=== PATIENT | female | born 1955 | race African-American/Black ===

== ENCOUNTER 2020-01-07 22:47 | Inpatient (IN) | payer MEDICARE, OTHER ==
[2020-01-07] MEDS ORDERED: hydrALAZINE 20 MG/ML VIAL ONE (23:17)
[2020-01-08 00:54] LABS: Troponin I 0.025 ng/mL (< 0.028)
[2020-01-08 03:00] VITALS: BMI 31.2
[2020-01-08] MEDS ORDERED: Senokot S 8.6-50 MG TAB PO PRN (04:57)
[2020-01-08] MEDS ORDERED: Acetaminophen 325 MG TAB PO PRN (04:57)
[2020-01-08 05:44] LABS: Troponin I 0.018 ng/mL (< 0.028)
[2020-01-08] MEDS ORDERED: Nitroglycerin 0.4 MG TAB (25 Tab Bottle) PO PRN (07:19)
[2020-01-08] MEDS ORDERED: cloNIDine 0.1 MG TAB PO PRN (07:21)
[2020-01-08] MEDS ORDERED: Ondansetron PF 4 MG/2 ML Vial IVP PRN (07:22)
[2020-01-08] MEDS ORDERED: Ondansetron ODT 4 MG TAB PO PRN (07:22)
[2020-01-08] MEDS ORDERED: Labetalol HCl 100 MG/20 ML VIAL SLOW IVP PRN (07:23)
[2020-01-08] MEDS ORDERED: Carvedilol 6.25 MG TAB PO SCH ×2 (08:00→09:00)
[2020-01-08] MEDS: Famotidine 20 MG TAB PO SCH ×3 (08:23→20:28)
[2020-01-08] MEDS ORDERED: Amlodipine 5 MG TAB PO SCH (09:00)
[2020-01-08] MEDS ORDERED: Amlodipine 10 MG TAB PO SCH (09:00)
[2020-01-08] MEDS ORDERED: Enoxaparin Sodium 40 MG/0.4 ML SYRINGE SC SCH (09:00)
[2020-01-08] MEDS ORDERED: NIFEdipine XL 30 MG TAB PO SCH (09:57)
[2020-01-08] MEDS ORDERED: Magnesium Sulfate 2 GM in Sodium Chloride 0.9% 100 ML IVPB SCH (10:00)
[2020-01-08] MEDS ORDERED: Magnesium 2 GM/50 ML 2 GM in Premix Bag 1 BAG IVPB SCH (10:15)
[2020-01-08 10:18] LABS: Hemoglobin 12.1 g/dL (12.0-16.0); Mean Corpuscular HGB CONC 34.3 g/dL (32.0-36.0); Mean Corpuscular Hemoglobin 32.8 pg (27.0-31.0); Mean Corpuscular Volume 95.6 fL (78.0-98.0); Mean Platelet Volume 8.1 fL (7.4-10.4); Platelet Count 228 thou/uL (130-400); RBC Distribution Width 11.7 % (11.5-14.5); Red Blood Cell (RBC) Count 3.69 mill/uL (4.20-5.40); White Blood Cell (WBC) Count 5.6 thou/uL (4.8-10.8)
[2020-01-08] MEDS ORDERED: Lorazepam 0.5 MG TAB PO PRN (10:27)
[2020-01-08] MEDS ORDERED: Lorazepam 2 MG/ML VIAL SLOW IVP SCH (10:30)
[2020-01-08 10:37] LABS: ALT (SGPT) 22 U/L (8-55); AST (SGOT) 32 U/L (5-34); Albumin 3.9 g/dL (3.4-4.8); Alkaline Phosphatase 100 U/L (40-110); Anion Gap 16 mmol/L (10-20); BUN (Urea Nitrogen) 18 mg/dL (9.8-20.1); Bilirubin, Total 1.2 mg/dL (0.2-1.2); Calc. Creatinine Clearance 72 mL/min (70-130); Calcium 9.1 mg/dL (7.8-10.44); Carbon Dioxide 20 mmol/L (23-31); Chloride 111 mmol/L (98-107); Estimated GFR-MDRD 72; Globulin 2.8 g/dL (2.4-3.5); Glucose 108 mg/dL (80-115); Magnesium 1.9 mg/dL (1.6-2.6); Potassium 3.5 mmol/L (3.5-5.1); Protein, Total 6.7 g/dL (6.0-8.3); Sodium 143 mmol/L (136-145)
[2020-01-08 10:40] LABS: Band 5 % (5-11); Eosinophils 4 % (0-10); Lymphocytes 35 % (21-51); MDiff Complete? YES; Monocytes 7 % (0-10); Neutrophil 49 % (42-75)
[2020-01-08] MEDS ORDERED: hydrALAZINE 20 MG/ML VIAL SLOW IVP PRN (11:30)
--- NOTE | 2020-01-08 12:04 | HP ---
PRIMARY CARE PHYSICIAN: The patient has seen Dr. Chopra in the past. She does not have a primary care physician. CHIEF COMPLAINT: Headache. HISTORY OF PRESENT ILLNESS: The patient is a 64-year-old female with hypertension, presented to [facility] with above complaints. Two days ago, the patient was evaluated in the emergency room for elevated blood pressure and headache. Her blood pressure in the emergency room was 248/146. She received several medications including labetalol total of 60 mg, hydralazine 10 mg, Zofran, and 100 mcg of fentanyl, and was discharged home for followup as outpatient. She was evaluated by Beverly De Los Santos yesterday as outpatient. Her blood pressure in the clinic was 161/92. She was started on carvedilol 6.25 and was discharged home. The patient returned to emergency room with elevated blood pressure. This time, blood pressure was 233/128. She also has generalized headache which was 8/10 without any aggravating or relieving factor. She also had some intermittent blurring of vision during the headache episode. She also complained of some photophobia. No chest pain, shortness of breath, palpitations, lightheadedness, dizziness, vertigo, chest pain, palpitations, syncope, or recent immobilization travel reported. The patient was started on Cardene drip and was transferred to this facility for hospital admission. At this facility, she received 10 mg of IV hydralazine and Cardene drip was later discontinued. PAST MEDICAL HISTORY: 1. Hypertension. 2. Questionable hepatitis B in 1980s. 3. Uterine fibroids. PAST SURGICAL HISTORY: 1. Tubal ligation. 2. Hernia repair. 3. Neck mass removal in 2017. ALLERGIES: THE PATIENT IS ALLERGIC TO SEVERAL MEDICATIONS INCLUDING KEFLEX, ASPIRIN, MOTRIN, DITROPAN, CLONIDINE, SULAR, AMLODIPINE, CLINDAMYCIN, DICLOFENAC, LISINOPRIL, AND BYSTOLIC. SOCIAL HISTORY: The patient currently lives at home with her family. She denies any smoking, alcohol, or drug use. She is full code and makes her own decision with the help of her family. FAMILY HISTORY: Positive for colon cancer. CURRENT HOME MEDICATIONS: The patient was started on carvedilol 6.25 mg b.i.d. yesterday. PHYSICAL EXAMINATION: VITAL SIGNS: In the emergency room, temperature 97.8, pulse rate of 78, respirations of 16, blood pressure of 233/128 with O2 saturation 96% on room air. GENERAL: A 64-year-old female, in no apparent distress. Anxious. HEENT: Head, atraumatic and normocephalic. Sclerae anicteric. Moist mucous membranes. No oral lesion. NECK: Supple. No JVD appreciated. No carotid bruit. LUNGS: Clear to auscultation bilaterally. HEART: S1 and S2 present. Regular rate and rhythm. No rubs or gallops. ABDOMEN: Soft, nontender. Bowel sounds present. No bruit. EXTREMITIES: No edema or calf tenderness. NEUROLOGIC: Cranial nerves 2 through 12 are normal on examination. Pupils are responsive to light bilaterally. There is no visual field defect. Sensation to touch is normal bilaterally. PSYCHIATRIC: Alert, awake, oriented x3. Anxious. SKIN: Warm and dry. LYMPH NODES: No palpable lymph nodes in the neck. PERIPHERAL VASCULAR: Radial pulses palpable bilaterally. MUSCULOSKELETAL: No joint swelling tenderness. DIAGNOSTIC TESTS: Telemetry monitoring by my review showed sinus rhythm. EKG by my review showed sinus rhythm with left axis deviation. CT scan of the brain by my review was negative for acute findings. Chest x-ray by my review was negative for infiltrate or edema. WBC of 5.6 with hemoglobin 12.1, platelets 228. Total bilirubin 2.1 with AST of 35, ALT of 125 with a creatinine of 1.2, and potassium 3.1. Her potassium today is 3.5 with BUN of 18, creatinine 0.94. TSH was 1.07. Hepatitis profile in 2015 was negative. Urinalysis showed 11 to 20 wbc's without any bacteria, moderate leukocyte esterase. IMPRESSION: 1. Hypertensive crisis, requiring Cardene. 2. Obesity with a BMI of 31.2. 3. Abnormal LFTs, improving. 4. Acute kidney injury on chronic kidney disease, stage 2, probably secondary to uncontrolled blood pressure. 5. Hypokalemia, improving. 6. Elevated troponin secondary to uncontrolled blood pressure/demand ischemia. Questionable type 2 myocardial infarction. 7. Medication noncompliance. PLAN: 1. The patient will be monitored in the telemetry unit. We will start her on Procardia XL along with carvedilol. We will add p.r.n. antihypertensives. We will add something for anxiety as well. Serial troponins were reviewed. We will recheck troponin in a.m. Treat headache with p.r.n. medications. 2. The patient was extensively counseled on hypertension. We will start her on low-dose potassium chloride. 3. DVT prophylaxis with SCDs. 4. The patient understands the above plan of care. Job ID: [id number]
[2020-01-08] MEDS ORDERED: Fentanyl 100 MCG/2 ML VIAL SLOW IVP SCH (12:15)
[2020-01-08] MEDS: Carvedilol 6.25 MG TAB PO SCH ×2 (16:15→20:27)
[2020-01-08] MEDS: Potassium Chloride 10 MEQ TAB PO SCH (16:16)
[2020-01-08] MEDS: NIFEdipine XL 30 MG TAB PO SCH (20:28)
[2020-01-09 05:35] LABS: Troponin I 0.033 ng/mL (< 0.028)
[2020-01-09 05:38] LABS: Anion Gap 14 mmol/L (10-20); BUN (Urea Nitrogen) 15 mg/dL (9.8-20.1); Calc. Creatinine Clearance 66 mL/min (70-130); Calcium 9.4 mg/dL (7.8-10.44); Carbon Dioxide 24 mmol/L (23-31); Chloride 107 mmol/L (98-107); Estimated GFR-MDRD 66; Glucose 104 mg/dL (80-115); Magnesium 2.2 mg/dL (1.6-2.6); Sodium 141 mmol/L (136-145)
[2020-01-09] MEDS: Carvedilol 6.25 MG TAB PO SCH (08:13)
[2020-01-09] MEDS: Potassium Chloride 10 MEQ TAB PO SCH ×2 (08:13→16:07)
[2020-01-09] MEDS: NIFEdipine XL 30 MG TAB PO SCH (08:13)
[2020-01-09] MEDS: Famotidine 20 MG TAB PO SCH (08:23)
[2020-01-09 15:46] VITALS: BP 130/64; TEMP 98.4
[2020-01-09] MEDS ORDERED: Carvedilol 6.25 MG TAB PO SCH (17:00)
--- NOTE | 2020-01-09 17:16 | DIS ---
DATE OF ADMISSION: 01/08/2020 DATE OF DISCHARGE: 01/09/2020 DISCHARGE DISPOSITION: Home. FOLLOWUP: 1. The patient was advised to follow up with Dr. Salinas in 1 week. 2. Follow up with Dr. Avila for hypertension management. 3. A sleep study as outpatient will be beneficial. DISCHARGE MEDICATIONS: 1. Carvedilol 6.25 mg twice a day. 2. Clonidine 0.1 mg twice daily as needed. 3. Procardia XL 30 mg daily. The patient was seen on the day of discharge. Denies any new complaints. No chest pain, shortness of breath, or palpitations. The patient will benefit from a stress test as outpatient. BRIEF HOSPITAL COURSE: The patient is a 64-year-old female with hypertension, presented to the emergency room with intractable headache. A workup was consistent with hypertensive crisis with blood pressure of 248/146. She was started on Cardene drip and was transferred to this facility. She was started on carvedilol along with Procardia XL with good improvement. Over the last 16 to 18 hours, her blood pressure remained stable in 130 systolic. She also had an echocardiogram due to elevated troponins in the indeterminate range that showed ejection fraction of 55% to 60% with mild mitral regurgitation, mild tricuspid regurgitation with a normal pulmonary artery pressure. She will benefit from a stress test as outpatient. Due to severely uncontrolled blood pressure, a renin-aldosterone level has been sent. Primary care physician advised to follow. Her cortisol level was in normal range at 10.1. Please note that the patient's overall condition improved earlier than anticipated. I think, the patient is stable for discharge. The patient understands the above plan of care. FINAL DIAGNOSES: 1. Hypertensive crisis. 2. Obesity with a BMI of 31.2. 3. Abnormal LFTs at the [facility] of unclear etiology, improving. 4. Acute kidney injury on chronic kidney disease stage 2, probably secondary to uncontrolled blood pressure, improved. 5. Hypokalemia, replaced. 6. Elevated troponin secondary to demand ischemia/uncontrolled high blood pressure, questionable type 2 myocardial infarction. 7. Medication noncompliance. The patient understands the above plan of care. She was extensively counseled on dietary modification for hypertension. Job ID: [id number]
[2020-01-12 00:36] LABS: Renin Activity Less than 0.167 ng/mL/hr (0.167-5.380)
== END 2020-01-09 17:30 | disposition home or self-care (01) | DRG 281 ==
LOC: ERS 22:47 → 2SE 01-08 00:15
PROVIDERS: ADMIT Internal Medicine; ATTEND Internal Medicine
DX: I16.9 Hypertensive crisis, unspecified (principal); I21.A1 Myocardial infarction type 2; N17.9 Acute kidney failure, unspecified; D25.9 Leiomyoma of uterus, unspecified; E66.9 Obesity, unspecified; Z68.31 Body mass index [BMI] 31.0-31.9, adult; E87.6 Hypokalemia; R79.89 Other specified abnormal findings of blood chemistry; Z91.14 Patient's other noncompliance with medication regimen; R94.5 Abnormal results of liver function studies
CPT/HCPCS: 36415; 80048; 80053; 82088; 82533; 83735; 84244; 84484; 85025; 93306; 94760; 96374; J0360; J1650; J2060; J3010; J3475

== ENCOUNTER 2021-06-14 18:33 | Inpatient (IN) | payer MEDICARE, OTHER ==
[2021-06-14] MEDS ORDERED: hydrALAZINE 20 MG/ML VIAL SLOW IVP PRN (20:55)
[2021-06-14] MEDS ORDERED: cloNIDine 0.1 MG TAB PO PRN ×2 (20:57→23:21)
[2021-06-14] MEDS: Morphine 2 MG/ML VIAL SLOW IVP PRN (21:35)
[2021-06-14] MEDS: Carvedilol 6.25 MG TAB PO SCH ×2 (21:36→22:32)
[2021-06-14] MEDS ORDERED: Acetaminophen 325 MG TAB PO PRN (23:17)
[2021-06-14] MEDS ORDERED: Ondansetron ODT 4 MG TAB PO PRN (23:17)
[2021-06-15] MEDS ORDERED: Dexamethasone 10 MG/ML VIAL SLOW IVP SCH (00:41)
[2021-06-15 04:02] LABS: #Basophils 0.1 thou/uL (0.0-0.2); #Eosinphils 0.2 thou/uL (0.0-0.7); #Lymphocytes 2.4 thou/uL (1.20-3.40); #Monocytes 0.6 thou/uL (0.11-0.59); #Neutrophils 4.3 thou/uL (1.40-6.50); %Basophils 0.7 % (0.0-1.0); %Lymphocytes 31.1 % (21.0-51.0); %Monocytes 8.2 % (0.0-10.0); %Neutrophils 56.9 % (42.0-75.0); Hemoglobin 13.1 g/dL (12.0-16.0); Mean Corpuscular Hemoglobin 33.5 pg (27.0-31.0); Mean Corpuscular Volume 95.9 fL (78.0-98.0); Mean Platelet Volume 6.4 fL (7.4-10.4); Platelet Count 297 thou/uL (130-400); RBC Distribution Width 11.8 % (11.5-14.5); Red Blood Cell (RBC) Count 3.92 mill/uL (4.20-5.40); White Blood Cell (WBC) Count 7.6 thou/uL (4.8-10.8)
[2021-06-15 04:14] LABS: Anion Gap 12 mmol/L (10-20); BUN (Urea Nitrogen) 16 mg/dL (9.8-20.1); Calc. Creatinine Clearance 69 mL/min (70-130); Calcium 9.5 mg/dL (7.8-10.44); Carbon Dioxide 25 mmol/L (23-31); Chloride 106 mmol/L (98-107); Glucose 120 mg/dL (80-115); Potassium 3.5 mmol/L (3.5-5.1); Sodium 139 mmol/L (136-145)
[2021-06-15] MEDS ORDERED: NIFEdipine XL 30 MG TAB PO SCH (09:00)
[2021-06-15] MEDS ORDERED: Enoxaparin Sodium 40 MG/0.4 ML SYRINGE SC SCH (09:00)
[2021-06-15 09:03] LABS: SARS-CoV-2 PCR by NAA Not Detected (NotDetected)
[2021-06-15] MEDS: Carvedilol 6.25 MG TAB PO SCH ×2 (09:35→21:36)
[2021-06-15] MEDS: Amlodipine 5 MG TAB PO SCH (09:37)
[2021-06-15] MEDS: Morphine 2 MG/ML VIAL SLOW IVP PRN (09:40)
[2021-06-15] MEDS ORDERED: Iopamidol-370 76% 500 ML 1 ML ONE (10:13)
[2021-06-15] MEDS ORDERED: Magnevist 469MG/ML 20 ML VIAL ONE (10:31)
[2021-06-15] MEDS: Dexamethasone 4 mg/ml Vial SLOW IVP SCH ×2 (15:42→21:38)
[2021-06-16] MEDS: Dexamethasone 4 mg/ml Vial SLOW IVP SCH ×4 (03:45→21:52)
[2021-06-16] MEDS: Ondansetron PF 4 MG/2 ML Vial IVP PRN (03:45)
[2021-06-16] MEDS ORDERED: Clindamycin/D5W 900 MG in Premix Bag 1 BAG IVPB SCH (08:00)
[2021-06-16] MEDS: Carvedilol 6.25 MG TAB PO SCH ×2 (09:06→20:31)
[2021-06-16] MEDS: Amlodipine 5 MG TAB PO SCH ×2 (09:07→09:08)
[2021-06-17] MEDS: Dexamethasone 4 mg/ml Vial SLOW IVP SCH ×4 (04:10→20:24)
[2021-06-17] MEDS ORDERED: Bacitracin Zinc Ointment 30 gm TUBE ONE (07:00)
[2021-06-17] MEDS ORDERED: Lidocaine 1% w/Epinephrine 1:100K 20 ML VIAL ONE (07:00)
[2021-06-17] MEDS ORDERED: Thrombin 5000 UNITS/5 ML VIAL ONE (07:00)
[2021-06-17] MEDS ORDERED: Lidocaine 0.5%/Epinephrine 1:200,000 50 ml Vial ONE (07:08)
[2021-06-17] MEDS: Amlodipine 5 MG TAB PO SCH (07:48)
[2021-06-17] MEDS ORDERED: Clindamycin/D5W 900 mg/50 ml Premix Bag ONE ×2 (08:15→15:09)
[2021-06-17] MEDS ORDERED: Levofloxacin 500 mg/D5W 100 ml Premix Bag ONE (08:15)
[2021-06-17] MEDS ORDERED: Fentanyl 100 MCG/2 ML VIAL ONE ×4 (08:38→17:41)
[2021-06-17] MEDS ORDERED: Ondansetron PF 4 MG/2 ML Vial ONE (08:51)
[2021-06-17] MEDS ORDERED: PROPOFOL 200 MG/20 ML VIAL ONE (08:51)
[2021-06-17] MEDS ORDERED: PHENYLEPHRINE-NS 100 MCG/ML 10 ML SYRINGE ONE ×2 (08:51→11:40)
[2021-06-17] MEDS ORDERED: Lidocaine 1% PF 5 ML VIAL ONE (08:51)
[2021-06-17] MEDS ORDERED: Rocuronium Bromide 10 MG/ML (10ML VIAL) ONE (08:51)
[2021-06-17] MEDS ORDERED: Mannitol 12.5 GM/50 ML ONE (09:33)
[2021-06-17] MEDS ORDERED: PROPOFOL 20 ML ONE ×4 (09:33→14:08)
[2021-06-17] MEDS ORDERED: Sodium Chloride 0.9% 250 Advantage ONE (09:33)
[2021-06-17] MEDS ORDERED: Rocuronium Bromide 50 MG/5 ML VIAL ONE (11:56)
[2021-06-17] MEDS ORDERED: SUGAMMADEX SODIUM 200 MG/2 ML VIAL ONE (13:15)
[2021-06-17] MEDS ORDERED: Dexmedetomidine 200 MCG/2 ML VIAL ONE (13:40)
[2021-06-17] MEDS ORDERED: diphenhydrAMINE 50 MG/ML VIAL IVP PRN (14:19)
[2021-06-17] MEDS ORDERED: Diltiazem 125 MG in Sodium Chloride 0.9% 100 ML IVPB SCH (14:30)
[2021-06-17] MEDS ORDERED: Promethazine HCl 25 MG/ML VIAL IM PRN (14:33)
[2021-06-17] MEDS ORDERED: Promethazine HCl 25 MG/ML VIAL IVPB PRN (14:33)
[2021-06-17] MEDS ORDERED: Ondansetron HCl/PF 4 MG/2 ML Vial IVP PRN (14:33)
[2021-06-17] MEDS ORDERED: niCARdipine 40MG In NaCl 40 MG/200 ML BAG IVPB SCH (14:45)
[2021-06-17] MEDS ORDERED: Dexamethasone 4 mg/ml Vial ONE (15:10)
[2021-06-17] MEDS: Clindamycin/D5W 900 MG in Premix Bag 1 BAG IVPB SCH ×2 (15:12→20:24)
[2021-06-17] MEDS ORDERED: hydrALAZINE 20 MG/ML VIAL ONE (15:17)
[2021-06-17] MEDS ORDERED: niCARdipine 25 MG in Sodium Chloride 0.9% 250 ML 250 ML IVPB SCH (15:30)
[2021-06-17] MEDS: Sodium Chloride 0.9% 1,000 ML IV SCH (16:00)
[2021-06-17] MEDS: Ondansetron PF 4 MG/2 ML Vial IVP PRN ×2 (18:15→23:48)
[2021-06-17] MEDS: Morphine 2 MG/ML VIAL SLOW IVP PRN ×2 (20:07→23:46)
[2021-06-17] MEDS: HYDROcodone/Acetaminophen 7.5/325 mg Tablet PO PRN (20:24)
[2021-06-17] MEDS: niCARdipine 25 MG in Sodium Chloride 0.9% 250 ML 240 ML IVPB SCH (20:51)
[2021-06-18] MEDS: niCARdipine 25 MG in Sodium Chloride 0.9% 250 ML 240 ML IVPB SCH ×3 (00:09→09:21)
[2021-06-18] MEDS: HYDROcodone/Acetaminophen 7.5/325 mg Tablet PO PRN ×2 (02:39→06:20)
[2021-06-18] MEDS: Clindamycin/D5W 900 MG in Premix Bag 1 BAG IVPB SCH (02:39)
[2021-06-18] MEDS: Dexamethasone 4 mg/ml Vial SLOW IVP SCH ×2 (02:41→08:21)
[2021-06-18 04:07] LABS: #Monocytes 0.6 thou/uL (0.11-0.59); #Neutrophils 12.6 thou/uL (1.40-6.50); %Eosinophils 0.1 % (0.0-10.0); %Lymphocytes 6.9 % (21.0-51.0); %Monocytes 4.2 % (0.0-10.0); %Neutrophils 88.8 % (42.0-75.0); Hemoglobin 12.1 g/dL (12.0-16.0); Mean Corpuscular HGB CONC 35.4 g/dL (32.0-36.0); Mean Corpuscular Hemoglobin 34.3 pg (27.0-31.0); Mean Corpuscular Volume 96.8 fL (78.0-98.0); Mean Platelet Volume 6.5 fL (7.4-10.4); Platelet Count 290 thou/uL (130-400); RBC Distribution Width 12.1 % (11.5-14.5); Red Blood Cell (RBC) Count 3.52 mill/uL (4.20-5.40); White Blood Cell (WBC) Count 14.2 thou/uL (4.8-10.8)
[2021-06-18 04:29] LABS: Anion Gap 13 mmol/L (10-20); BUN (Urea Nitrogen) 23 mg/dL (9.8-20.1); Calc. Creatinine Clearance 73 mL/min (70-130); Calcium 8.8 mg/dL (7.8-10.44); Carbon Dioxide 20 mmol/L (23-31); Chloride 111 mmol/L (98-107); Glucose 135 mg/dL (80-115); Potassium 3.7 mmol/L (3.5-5.1); Sodium 140 mmol/L (136-145)
[2021-06-18] MEDS: Sodium Chloride 0.9% 1,000 ML IV SCH ×2 (05:25→17:52)
[2021-06-18] MEDS ORDERED: Amlodipine 5 MG TAB PO SCH (09:00)
[2021-06-18] MEDS: Morphine 2 MG/ML VIAL SLOW IVP PRN ×2 (10:26→22:48)
[2021-06-18] MEDS ORDERED: cloNIDine 0.1 MG TAB PO SCH (10:50)
[2021-06-18] MEDS: niCARdipine 50 MG in Sodium Chloride 0.9% 250 ML 230 ML IVPB SCH ×4 (10:54→20:24)
[2021-06-18] MEDS ORDERED: cloNIDine 0.1 MG TAB PO PRN (10:57)
[2021-06-18] MEDS ORDERED: hydrALAZINE 20 MG/ML VIAL SLOW IVP PRN (12:32)
[2021-06-18] MEDS: Ondansetron PF 4 MG/2 ML Vial IVP PRN (13:30)
[2021-06-18] MEDS: Dexamethasone 1 MG TAB PO SCH ×2 (16:58→20:23)
[2021-06-18] MEDS: cloNIDine 0.1 MG TAB PO SCH (20:22)
[2021-06-19] MEDS: niCARdipine 50 MG in Sodium Chloride 0.9% 250 ML 230 ML IVPB SCH (05:57)
[2021-06-19] MEDS: Sodium Chloride 0.9% 1,000 ML IV SCH ×2 (05:59→18:25)
[2021-06-19] MEDS: Dexamethasone 1 MG TAB PO SCH ×4 (08:36→20:48)
[2021-06-19] MEDS: NIFEdipine XL 90 MG TAB PO SCH (08:36)
[2021-06-19] MEDS: cloNIDine 0.1 MG TAB PO SCH ×2 (08:37→20:46)
[2021-06-20 04:17] VITALS: BMI 38.4
[2021-06-20] MEDS: Sodium Chloride 0.9% 1,000 ML IV SCH ×2 (06:30→23:16)
[2021-06-20] MEDS ORDERED: Bisacodyl 5 MG TAB PO PRN (08:59)
[2021-06-20] MEDS ORDERED: Polyethylene Glycol 3350 17 GM Packet PO SCH (09:00)
[2021-06-20] MEDS: NIFEdipine XL 90 MG TAB PO SCH (10:56)
[2021-06-20] MEDS: Dexamethasone 1 MG TAB PO SCH ×4 (10:57→20:20)
[2021-06-20] MEDS: cloNIDine 0.1 MG TAB PO SCH ×2 (10:57→20:20)
[2021-06-20 19:18] VITALS: BP 123/76; TEMP 98
[2021-06-23] MEDS ORDERED: Dexamethasone 1 MG TAB PO SCH (17:00)
== END 2021-06-20 22:01 | DRG 25 ==
LOC: ERS 18:33 → ONC 19:42 → CCU 06-17 16:28 → SURG A 06-19 17:35
PROVIDERS: ADMIT Student in an Organized Health Care Education/Training Program; ATTEND Family Medicine
PROC: 00BC0ZZ Excision of Cerebellum, Open Approach (ICD-10-PCS; principal; 2021-06-17)
PROC: 00U20KZ Supplement Dura Mater with Nonautologous Tissue Substitute, Open Approach (ICD-10-PCS; 2021-06-17)
DX: C79.31 Secondary malignant neoplasm of brain (principal); G93.6 Cerebral edema; G93.5 Compression of brain; Z66 Do not resuscitate; Z20.822 Contact with and (suspected) exposure to COVID-19; C50.919 Malignant neoplasm of unspecified site of unspecified female breast; I10 Essential (primary) hypertension; I16.0 Hypertensive urgency; I51.7 Cardiomegaly; I66.21 Occlusion and stenosis of right posterior cerebral artery; R59.0 Localized enlarged lymph nodes; Z88.1 Allergy status to other antibiotic agents; Z88.8 Allergy status to other drugs, medicaments and biological substances; Z79.899 Other long term (current) drug therapy; Z98.51 Tubal ligation status
CPT/HCPCS: 36415; 38505; 70553; 71260; 74177; 78306; 80048; 85025; 88307; 88331; 88341; 88342; 99285; A9503; A9579; C1713; J0360; J1100; J1642; J1956; J2001; J2150; J2270; J2405; J2704; J3010; J3370; J3490; J7050; J8540; Q9967; U0003; U0005

== ENCOUNTER 2021-07-19 12:44 | Outpatient (CLI) | payer MEDICARE, OTHER | END 2021-07-19 12:45 | disposition home or self-care (01) | LOC: ULT 12:44 | PROVIDERS: ATTEND Internal Medicine Hematology & Oncology | DX: Z51.11 Encounter for antineoplastic chemotherapy (principal); C50.912 Malignant neoplasm of unspecified site of left female breast; I08.1 Rheumatic disorders of both mitral and tricuspid valves; I31.3 Pericardial effusion (noninflammatory); Z79.899 Other long term (current) drug therapy | CPT/HCPCS: 93306 ==

== ENCOUNTER 2021-07-22 12:23 | Emergency (ER) | payer MEDICARE, OTHER ==
[2021-07-22] MEDS ORDERED: Morphine 4 MG/ML VIAL ONE (13:15)
[2021-07-22 13:39] LABS: #Basophils 0.1 thou/uL (0.0-0.2); #Lymphocytes 2.1 thou/uL (1.20-3.40); #Monocytes 0.6 thou/uL (0.11-0.59); #Neutrophils 5.3 thou/uL (1.40-6.50); %Basophils 0.7 % (0.0-1.0); %Eosinophils 0.2 % (0.0-10.0); %Lymphocytes 26.1 % (21.0-51.0); %Monocytes 7.1 % (0.0-10.0); %Neutrophils 65.9 % (42.0-75.0); Hemoglobin 15.5 g/dL (12.0-16.0); Mean Corpuscular Hemoglobin 33.4 pg (27.0-31.0); Mean Corpuscular Volume 98.2 fL (78.0-98.0); Mean Platelet Volume 6.6 fL (7.4-10.4); Platelet Count 368 thou/uL (130-400); RBC Distribution Width 12.1 % (11.5-14.5); Red Blood Cell (RBC) Count 4.66 mill/uL (4.20-5.40)
[2021-07-22 13:49] LABS: Albumin 4.1 g/dL (3.4-4.8)
[2021-07-22 13:50] LABS: Calcium 9.9 mg/dL (7.8-10.44); Chloride 108 mmol/L (98-107); Potassium 4.1 mmol/L (3.5-5.1); Sodium 139 mmol/L (136-145)
[2021-07-22 13:51] LABS: Globulin 3.4 g/dL (2.4-3.5); Glucose 108 mg/dL (80-115); Protein, Total 7.5 g/dL (5.8-8.1)
[2021-07-22 13:52] LABS: Anion Gap 15 mmol/L (10-20); Carbon Dioxide 20 mmol/L (23-31)
[2021-07-22 13:53] LABS: Bilirubin, Total 1.8 mg/dL (0.2-1.2)
[2021-07-22 13:54] LABS: Alkaline Phosphatase 87 U/L (40-110); Calc. Creatinine Clearance 0 mL/min (70-130)
[2021-07-22 13:55] LABS: BUN (Urea Nitrogen) 19 mg/dL (9.8-20.1)
[2021-07-22 13:56] LABS: AST (SGOT) 28 U/L (5-34)
[2021-07-22 13:57] LABS: ALT (SGPT) 16 U/L (8-55)
[2021-07-22 15:28] LABS: Bacteria/HPF None Seen HPF (None Seen); Bilirubin Negative (Negative); Blood, Urine Negative (Negative); Clarity Clear (Clear); Glucose, Urine (Dipstick) Normal (Negative); Ketone, Urine Negative (Negative); Leukocyte 25 Leu/uL (Negative); Nitrite Negative (Negative); Protein, Urine (Dipstick) Negative (Neg-Trace); RBC/HPF 0-3 HPF (0-3); Specific Gravity, Urine 1.007 (1.002-1.036); Squamous Epithelial 0-3 HPF (0-3); Urobilinogen Normal mg/dL (Less than 2); WBC/HPF 0-3 HPF (0-3)
[2021-07-22] MEDS ORDERED: Ondansetron PF 4 MG/2 ML Vial ONE (16:05)
== END 2021-07-22 18:40 | disposition home or self-care (01) ==
LOC: ERS 12:23
DX: G62.9 Polyneuropathy, unspecified (principal); C79.31 Secondary malignant neoplasm of brain; I10 Essential (primary) hypertension; Z79.899 Other long term (current) drug therapy
CPT/HCPCS: 36415; 70450; 72131; 72192; 80053; 81003; 81015; 85025; 85379; 96374; J2270; J2405

== ENCOUNTER 2021-07-27 11:17 | Emergency (ER) | payer MEDICARE, OTHER ==
[2021-07-27 13:02] LABS: #Lymphocytes 2.4 thou/uL (1.20-3.40); #Monocytes 0.6 thou/uL (0.11-0.59); #Neutrophils 6.9 thou/uL (1.40-6.50); %Basophils 0.1 % (0.0-1.0); %Eosinophils 0.1 % (0.0-10.0); %Lymphocytes 23.7 % (21.0-51.0); %Monocytes 6.4 % (0.0-10.0); %Neutrophils 69.8 % (42.0-75.0); Mean Corpuscular HGB CONC 34.6 g/dL (32.0-36.0); Mean Corpuscular Hemoglobin 33.5 pg (27.0-31.0); Platelet Count 340 thou/uL (130-400); RBC Distribution Width 12.1 % (11.5-14.5); Red Blood Cell (RBC) Count 4.48 mill/uL (4.20-5.40); White Blood Cell (WBC) Count 9.9 thou/uL (4.8-10.8)
[2021-07-27] MEDS ORDERED: Lidocaine Viscous Sol 2% 15 ml UD Cup ONE (13:21)
[2021-07-27] MEDS ORDERED: Ondansetron PF 4 MG/2 ML Vial ONE (13:21)
[2021-07-27 13:23] LABS: ALT (SGPT) 15 U/L (8-55); AST (SGOT) 18 U/L (5-34); Albumin 4.4 g/dL (3.4-4.8); Alkaline Phosphatase 83 U/L (40-110); Anion Gap 14 mmol/L (10-20); BUN (Urea Nitrogen) 23 mg/dL (9.8-20.1); Bilirubin, Total 1.6 mg/dL (0.2-1.2); Calc. Creatinine Clearance 0 mL/min (70-130); Calcium 10.7 mg/dL (7.8-10.44); Carbon Dioxide 31 mmol/L (23-31); Chloride 98 mmol/L (98-107); Globulin 2.9 g/dL (2.4-3.5); Glucose 118 mg/dL (80-115); Lipase 54 U/L (8-78); Potassium 3.8 mmol/L (3.5-5.1); Protein, Total 7.3 g/dL (5.8-8.1); Sodium 139 mmol/L (136-145)
[2021-07-27 14:39] LABS: Bacteria/HPF 4+ HPF (None Seen); Bilirubin Negative (Negative); Blood, Urine Negative (Negative); Clarity Turbid (Clear); Glucose, Urine (Dipstick) Normal (Negative); Ketone, Urine Negative (Negative); Leukocyte 500 Leu/uL (Negative); Nitrite Negative (Negative); Protein, Urine (Dipstick) 10 mg/dL (Neg-Trace); RBC/HPF 0-3 HPF (0-3); Specific Gravity, Urine 1.022 (1.002-1.036); Squamous Epithelial 0-3 HPF (0-3); Urobilinogen Normal mg/dL (Less than 2); WBC/HPF 21-50 HPF (0-3)
== END 2021-07-27 15:42 | disposition home or self-care (01) ==
LOC: ERS 11:17
DX: N17.9 Acute kidney failure, unspecified (principal); N39.0 Urinary tract infection, site not specified; I10 Essential (primary) hypertension; Z85.3 Personal history of malignant neoplasm of breast; Z79.82 Long term (current) use of aspirin; Z79.899 Other long term (current) drug therapy
CPT/HCPCS: 74177; 80053; 81003; 81015; 83690; 85025; 87077; 87086; 87186; 93005; 96374; J2405

== ENCOUNTER 2021-08-01 14:02 | Emergency (ER) | payer MEDICARE, OTHER ==
[2021-08-01] MEDS ORDERED: Metoclopramide 10 MG/10 ML UDCUP ONE (14:46)
[2021-08-01] MEDS ORDERED: diphenhydrAMINE 50 MG/ML VIAL ONE (14:46)
[2021-08-01] MEDS ORDERED: Metoclopramide HCl 10 MG/2 ML VIAL ONE (14:47)
[2021-08-01] MEDS ORDERED: cloNIDine 0.1 MG TAB ONE (16:06)
== END 2021-08-01 17:58 | disposition home or self-care (01) ==
LOC: ERS 14:02
DX: R51.9 Headache, unspecified (principal); I10 Essential (primary) hypertension; Z85.3 Personal history of malignant neoplasm of breast
CPT/HCPCS: 70450; J1200; J2765

== ENCOUNTER 2021-08-03 08:32 | Inpatient (IN) | payer MEDICARE, OTHER ==
[2021-08-03 09:26] LABS: #Lymphocytes 1.2 thou/uL (1.20-3.40); #Monocytes 0.9 thou/uL (0.11-0.59); #Neutrophils 7.6 thou/uL (1.40-6.50); %Basophils 0.2 % (0.0-1.0); %Eosinophils 0.2 % (0.0-10.0); %Lymphocytes 12.4 % (21.0-51.0); %Monocytes 9.4 % (0.0-10.0); %Neutrophils 77.7 % (42.0-75.0); Hemoglobin 15.5 g/dL (12.0-16.0); Mean Corpuscular HGB CONC 33.5 g/dL (32.0-36.0); Mean Corpuscular Hemoglobin 32.9 pg (27.0-31.0); Mean Corpuscular Volume 98.2 fL (78.0-98.0); Mean Platelet Volume 7.2 fL (7.4-10.4); Platelet Count 272 thou/uL (130-400); RBC Distribution Width 12.5 % (11.5-14.5); Red Blood Cell (RBC) Count 4.72 mill/uL (4.20-5.40); White Blood Cell (WBC) Count 9.8 thou/uL (4.8-10.8)
[2021-08-03 09:39] LABS: ALT (SGPT) 19 U/L (8-55); AST (SGOT) 19 U/L (5-34); Alkaline Phosphatase 81 U/L (40-110); Anion Gap 14 mmol/L (10-20); BUN (Urea Nitrogen) 20 mg/dL (9.8-20.1); Calc. Creatinine Clearance 0 mL/min (70-130); Calcium 9.9 mg/dL (7.8-10.44); Carbon Dioxide 30 mmol/L (23-31); Chloride 104 mmol/L (98-107); Globulin 2.9 g/dL (2.4-3.5); Glucose 110 mg/dL (80-115); Potassium 3.7 mmol/L (3.5-5.1); Protein, Total 6.9 g/dL (5.8-8.1); Sodium 144 mmol/L (136-145)
[2021-08-03 09:53] LABS: Prothrombin Time 13.2 sec (12.0-14.7)
[2021-08-03 09:54] LABS: PTT 29.8 sec (22.9-36.1)
[2021-08-03] MEDS ORDERED: HYDROcodone/Acetaminophen 5/325 mg Tablet PO PRN (11:18)
[2021-08-03] MEDS ORDERED: Acetaminophen 325 MG TAB PO PRN (11:18)
[2021-08-03] MEDS ORDERED: Dexamethasone 10 MG in Sodium Chloride 0.9% 50 ML IVPB SCH (11:26)
[2021-08-03] MEDS ORDERED: Enoxaparin Sodium 40 MG/0.4 ML SYRINGE SC SCH (11:30)
[2021-08-03] MEDS ORDERED: hydrALAZINE 20 MG/ML VIAL SLOW IVP PRN (11:46)
[2021-08-03] MEDS ORDERED: Iopamidol-370 76% 500 ML 1 ML ONE (11:59)
[2021-08-03] MEDS ORDERED: Magnevist 469MG/ML 20 ML VIAL ONE (12:12)
[2021-08-03 12:17] LABS: Bacteria/HPF None Seen HPF (None Seen); Bilirubin Negative (Negative); Blood, Urine 2+ (Negative); Clarity Clear (Clear); Glucose, Urine (Dipstick) Normal (Negative); Ketone, Urine Negative (Negative); Leukocyte 500 Leu/uL (Negative); Nitrite Negative (Negative); Protein, Urine (Dipstick) Negative (Neg-Trace); RBC/HPF 0-3 HPF (0-3); Specific Gravity, Urine 1.027 (1.002-1.036); Squamous Epithelial 0-3 HPF (0-3); Urobilinogen Normal mg/dL (Less than 2); WBC/HPF 21-50 HPF (0-3)
[2021-08-03] MEDS ORDERED: NIFEdipine XL 30 MG TAB PO SCH (12:30)
[2021-08-03 12:54] VITALS: BMI 31.0
[2021-08-03] MEDS: Dexamethasone 10 MG/ML VIAL SLOW IVP SCH (14:34)
[2021-08-03] MEDS: diphenhydrAMINE 50 MG/ML VIAL IVP PRN (14:37)
[2021-08-03] MEDS: Metoclopramide HCl 10 MG/2 ML VIAL IVP SCH ×2 (14:37→22:28)
[2021-08-03] MEDS: Dextrose 5 %-0.45 % NaCl 1,000 ML IV SCH (14:54)
[2021-08-03] MEDS ORDERED: Amlodipine 5 MG TAB PO SCH (15:00)
[2021-08-03] MEDS ORDERED: Gabapentin 100 MG CAP PO SCH (15:00)
[2021-08-03 15:12] LABS: Hemoglobin A1c 5.4 % (4.0-6.0)
[2021-08-03] MEDS: cloNIDine 0.1 MG TAB PO PRN (17:09)
[2021-08-03] MEDS ORDERED: Nystatin Powder 15 GM BOT TOP PRN (18:12)
[2021-08-03] MEDS: Gabapentin 300 MG CAP PO SCH (20:32)
[2021-08-04] MEDS: Dextrose 5 %-0.45 % NaCl 1,000 ML IV SCH ×3 (01:40→23:08)
[2021-08-04 06:02] LABS: Cardiac Risk 4.1 (Less than 4.5)
[2021-08-04] MEDS: Metoclopramide HCl 10 MG/2 ML VIAL IVP SCH ×4 (06:18→23:07)
[2021-08-04 08:25] LABS: Anion Gap 13 mmol/L (10-20); BUN (Urea Nitrogen) 15 mg/dL (9.8-20.1); Calc. Creatinine Clearance 57 mL/min (70-130); Calcium 8.9 mg/dL (7.8-10.44); Carbon Dioxide 26 mmol/L (23-31); Chloride 106 mmol/L (98-107); Glucose 119 mg/dL (80-115); Potassium 3.5 mmol/L (3.5-5.1); Sodium 141 mmol/L (136-145)
[2021-08-04] MEDS: Aspirin Chewable 81 MG TAB PO SCH (08:47)
[2021-08-04] MEDS: Enoxaparin Sodium 40 MG/0.4 ML SYRINGE SC SCH (08:47)
[2021-08-04] MEDS: Gabapentin 100 MG CAP PO SCH (08:47)
[2021-08-04] MEDS: Amlodipine 5 MG TAB PO SCH (08:48)
[2021-08-04] MEDS: Ondansetron PF 4 MG/2 ML Vial IVP PRN (08:52)
[2021-08-04] MEDS ORDERED: NIFEdipine XL 30 MG TAB PO SCH (09:00)
[2021-08-04] MEDS ORDERED: Bisacodyl 10 MG SUPP PR PRN (11:24)
[2021-08-04] MEDS ORDERED: Polyethylene Glycol 3350 17 GM Packet PO SCH (11:30)
[2021-08-04] MEDS ORDERED: Docusate 100 MG CAP PO SCH (11:30)
[2021-08-04] MEDS: Dexamethasone 10 MG/ML VIAL SLOW IVP SCH (11:44)
[2021-08-04] MEDS ORDERED: Metoclopramide HCl 10 MG/2 ML VIAL IVP SCH (17:30)
[2021-08-04] MEDS: diphenhydrAMINE 50 MG/ML VIAL IVP PRN ×2 (17:34→23:07)
[2021-08-04] MEDS ORDERED: Dicyclomine 10 MG CAP PO SCH (21:15)
[2021-08-04] MEDS: fentaNYL 75 mcg/hour Patch TD SCH (21:32)
[2021-08-04] MEDS: Docusate 100 MG CAP PO SCH (21:34)
[2021-08-04] MEDS: Gabapentin 300 MG CAP PO SCH (21:34)
[2021-08-05] MEDS: diphenhydrAMINE 50 MG/ML VIAL IVP PRN (06:26)
[2021-08-05] MEDS: Metoclopramide HCl 10 MG/2 ML VIAL IVP SCH ×3 (06:26→21:04)
[2021-08-05] MEDS: Gabapentin 100 MG CAP PO SCH (08:47)
[2021-08-05] MEDS: Aspirin Chewable 81 MG TAB PO SCH (08:47)
[2021-08-05] MEDS: Dextrose 5 %-0.45 % NaCl 1,000 ML IV SCH ×2 (08:48→19:29)
[2021-08-05] MEDS: Enoxaparin Sodium 40 MG/0.4 ML SYRINGE SC SCH (08:48)
[2021-08-05] MEDS: Docusate 100 MG CAP PO SCH ×2 (08:48→21:03)
[2021-08-05] MEDS: Amlodipine 5 MG TAB PO SCH (08:48)
[2021-08-05] MEDS: Polyethylene Glycol 3350 17 GM Packet PO SCH (08:49)
[2021-08-05] MEDS: Gabapentin 300 MG CAP PO SCH (21:04)
[2021-08-06] MEDS: cloNIDine 0.1 MG TAB PO PRN (00:02)
[2021-08-06] MEDS: Dextrose 5 %-0.45 % NaCl 1,000 ML IV SCH ×3 (05:54→20:39)
[2021-08-06] MEDS: Metoclopramide HCl 10 MG/2 ML VIAL IVP SCH ×2 (05:54→14:32)
[2021-08-06] MEDS: Amlodipine 5 MG TAB PO SCH (08:38)
[2021-08-06] MEDS: Polyethylene Glycol 3350 17 GM Packet PO SCH (08:39)
[2021-08-06] MEDS: Aspirin Chewable 81 MG TAB PO SCH (08:39)
[2021-08-06] MEDS: Docusate 100 MG CAP PO SCH ×2 (08:39→20:38)
[2021-08-06] MEDS: Gabapentin 100 MG CAP PO SCH (08:39)
[2021-08-06] MEDS: Enoxaparin Sodium 40 MG/0.4 ML SYRINGE SC SCH (08:40)
[2021-08-06] MEDS ORDERED: HYDROmorphone 0.5 MG/0.5 ML SYRINGE SLOW IVP PRN (11:50)
[2021-08-06] MEDS ORDERED: HYDROmorphone 0.5 MG/0.5 ML SYRINGE SLOW IVP SCH ×2 (12:15→14:15)
[2021-08-06] MEDS: Ondansetron PF 4 MG/2 ML Vial IVP PRN ×2 (12:42→18:24)
[2021-08-06] MEDS: Gabapentin 300 MG CAP PO SCH (20:38)
[2021-08-07 05:56] LABS: #Eosinphils 0.2 thou/uL (0.0-0.7); #Lymphocytes 1.5 thou/uL (1.20-3.40); #Neutrophils 7.5 thou/uL (1.40-6.50); %Basophils 0.3 % (0.0-1.0); %Eosinophils 1.6 % (0.0-10.0); %Lymphocytes 14.5 % (21.0-51.0); %Monocytes 9.9 % (0.0-10.0); %Neutrophils 73.7 % (42.0-75.0); Hemoglobin 12.8 g/dL (12.0-16.0); Mean Corpuscular HGB CONC 32.8 g/dL (32.0-36.0); Mean Corpuscular Hemoglobin 32.1 pg (27.0-31.0); Mean Corpuscular Volume 97.9 fL (78.0-98.0); Mean Platelet Volume 7.2 fL (7.4-10.4); Platelet Count 193 thou/uL (130-400); RBC Distribution Width 12.4 % (11.5-14.5); Red Blood Cell (RBC) Count 3.98 mill/uL (4.20-5.40); White Blood Cell (WBC) Count 10.1 thou/uL (4.8-10.8)
[2021-08-07 06:18] LABS: Anion Gap 11 mmol/L (10-20); BUN (Urea Nitrogen) 11 mg/dL (9.8-20.1); Calc. Creatinine Clearance 69 mL/min (70-130); Calcium 8.9 mg/dL (7.8-10.44); Carbon Dioxide 26 mmol/L (23-31); Chloride 110 mmol/L (98-107); Glucose 117 mg/dL (80-115); Potassium 4.1 mmol/L (3.5-5.1); Sodium 143 mmol/L (136-145)
[2021-08-07] MEDS ORDERED: Dexamethasone 4 mg/ml Vial ONE (06:37)
[2021-08-07 08:46] LABS: SARS-CoV-2 NAA Rapid Test Not Detected (NotDetected)
[2021-08-07] MEDS: cloNIDine 0.1 MG TAB PO PRN (10:30)
[2021-08-07] MEDS: Amlodipine 5 MG TAB PO SCH (10:30)
[2021-08-07] MEDS: Ondansetron PF 4 MG/2 ML Vial IVP PRN ×2 (11:31→18:02)
[2021-08-07] MEDS: Enoxaparin Sodium 40 MG/0.4 ML SYRINGE SC SCH (11:32)
[2021-08-07] MEDS: Aspirin Chewable 81 MG TAB PO SCH (11:40)
[2021-08-07] MEDS: Gabapentin 100 MG CAP PO SCH (11:40)
[2021-08-07] MEDS: Polyethylene Glycol 3350 17 GM Packet PO SCH (11:40)
[2021-08-07] MEDS: Docusate 100 MG CAP PO SCH ×2 (11:40→21:49)
[2021-08-07] MEDS: Dextrose 5 %-0.45 % NaCl 1,000 ML IV SCH ×2 (12:14→22:04)
[2021-08-07] MEDS ORDERED: Amlodipine 5 MG TAB PO SCH (12:30)
[2021-08-07 19:14] LABS: SARS-CoV-2 IgG Ab Non-Reactive (NonReactive)
[2021-08-07 19:28] LABS: SARS-CoV-2 IgG Index 0.04 S/CO (< 1.40)
[2021-08-07] MEDS ORDERED: Metoclopramide HCl 10 MG/2 ML VIAL IVP PRN (20:31)
[2021-08-07] MEDS: fentaNYL 75 mcg/hour Patch TD SCH (22:08)
[2021-08-07] MEDS: Gabapentin 300 MG CAP PO SCH (22:14)
[2021-08-08] MEDS: Ondansetron PF 4 MG/2 ML Vial IVP PRN (01:12)
[2021-08-08] MEDS: Docusate 100 MG CAP PO SCH ×2 (09:25→20:42)
[2021-08-08] MEDS: Amlodipine 10 MG TAB PO SCH (09:25)
[2021-08-08] MEDS: Gabapentin 100 MG CAP PO SCH (09:28)
[2021-08-08] MEDS: Dextrose 5 %-0.45 % NaCl 1,000 ML IV SCH (09:29)
[2021-08-08] MEDS: Aspirin Chewable 81 MG TAB PO SCH ×2 (09:29→09:51)
[2021-08-08] MEDS: Polyethylene Glycol 3350 17 GM Packet PO SCH (09:30)
[2021-08-08] MEDS: hydrALAZINE 25 MG TAB PO SCH ×3 (09:30→20:43)
[2021-08-08] MEDS: Enoxaparin Sodium 40 MG/0.4 ML SYRINGE SC SCH (09:30)
[2021-08-08] MEDS: diphenhydrAMINE 50 MG/ML VIAL IVP PRN ×2 (13:48→20:42)
[2021-08-08] MEDS: Metoclopramide HCl 10 MG/2 ML VIAL IVP PRN ×2 (13:48→20:42)
[2021-08-08] MEDS: Gabapentin 300 MG CAP PO SCH (20:43)
[2021-08-08] MEDS ORDERED: diphenhydrAMINE 25 MG CAP PO PRN (20:57)
[2021-08-09] MEDS ORDERED: Sodium Chloride 0.9% 1,000 ML IV SCH (06:00)
[2021-08-09] MEDS ORDERED: traMADol HCl 50 MG TAB PO PRN (08:15)
[2021-08-09] MEDS ORDERED: Lidocaine 5% Patch TD SCH (09:00)
[2021-08-09] MEDS: Aspirin Chewable 81 MG TAB PO SCH (10:18)
[2021-08-09] MEDS: Gabapentin 100 MG CAP PO SCH (10:18)
[2021-08-09] MEDS: Amlodipine 10 MG TAB PO SCH (10:19)
[2021-08-09] MEDS: Docusate 100 MG CAP PO SCH (10:20)
[2021-08-09] MEDS: Polyethylene Glycol 3350 17 GM Packet PO SCH (10:22)
[2021-08-09] MEDS: Enoxaparin Sodium 40 MG/0.4 ML SYRINGE SC SCH (10:25)
[2021-08-09] MEDS: hydrALAZINE 25 MG TAB PO SCH ×2 (10:25→15:14)
[2021-08-09 16:21] VITALS: BP 143/82; TEMP 97.5
[2021-08-09] MEDS ORDERED: Transdermal Patch Removal TOP SCH (21:00)
== END 2021-08-09 17:11 | disposition home health service (06) | DRG 948 ==
LOC: ERS 08:32 → 3SE 10:42
PROVIDERS: ADMIT Internal Medicine; ATTEND Internal Medicine
DX: R53.1 Weakness (principal); C79.31 Secondary malignant neoplasm of brain; I16.9 Hypertensive crisis, unspecified; G93.49 Other encephalopathy; F05 Delirium due to known physiological condition; R41.3 Other amnesia; C50.919 Malignant neoplasm of unspecified site of unspecified female breast; Z66 Do not resuscitate; Z20.822 Contact with and (suspected) exposure to COVID-19; K59.00 Constipation, unspecified; K21.9 Gastro-esophageal reflux disease without esophagitis; K22.2 Esophageal obstruction; Z53.20 Procedure and treatment not carried out because of patient's decision for unspecified reasons; Z79.899 Other long term (current) drug therapy; Z79.82 Long term (current) use of aspirin; Z98.51 Tubal ligation status; Z80.3 Family history of malignant neoplasm of breast; Z88.6 Allergy status to analgesic agent; Z88.1 Allergy status to other antibiotic agents; Z88.8 Allergy status to other drugs, medicaments and biological substances
CPT/HCPCS: 36415; 36416; 70450; 70496; 70498; 70553; 71045; 72141; 72146; 74018; 80048; 80053; 80061; 81003; 81015; 83036; 84484; 85025; 85610; 85730; 86769; 93005; 94760; 96365; 96375; A9579; J1100; J1170; J1200; J2405; J2765; J7042; J7050; Q9967; U0002; U0003; U0005

== ENCOUNTER 2021-11-14 12:02 | Outpatient (CLI) | payer MEDICARE, OTHER ==
[2021-11-14 21:45] LABS: SARS-CoV-2 PCR by NAA Not Detected (NotDetected)
== END 2021-11-14 12:03 | disposition home or self-care (01) ==
LOC: LABBT 12:02
PROVIDERS: ATTEND Radiology Radiation Oncology
DX: Z01.812 Encounter for preprocedural laboratory examination (principal); C50.212 Malignant neoplasm of upper-inner quadrant of left female breast; C79.31 Secondary malignant neoplasm of brain; Z20.822 Contact with and (suspected) exposure to COVID-19
CPT/HCPCS: U0003; U0005

== ENCOUNTER → 2021-11-16 | Outpatient (CLI) | payer MEDICARE, OTHER | LOC: PET 10:15 | PROVIDERS: ATTEND Radiology Radiation Oncology | DX: C50.212 Malignant neoplasm of upper-inner quadrant of left female breast (principal); C79.31 Secondary malignant neoplasm of brain | CPT/HCPCS: 78815; A9552 ==

== ENCOUNTER 2021-11-19 12:31 | Day surgery (SDC) | payer MEDICARE, OTHER ==
[2021-10-17 09:53] VITALS: BMI 29.8
[~2021-11-19 12:31] MED LIST: Magnevist 469MG/ML 20 ML VIAL ONE
[2021-11-19] MEDS ORDERED: Phenylephrine 10 MG/ML VIAL ONE (13:23)
[2021-11-19] MEDS ORDERED: Labetalol HCl 100 MG/20 ML VIAL ONE (13:45)
[2021-11-19] MEDS ORDERED: Rocuronium Bromide 10 MG/ML (10ML VIAL) ONE (13:45)
[2021-11-19] MEDS ORDERED: Lidocaine 1% PF 5 ML VIAL ONE (13:45)
[2021-11-19] MEDS ORDERED: ePHEDrine 50 MG/ML VIAL ONE (13:45)
[2021-11-19] MEDS ORDERED: PROPOFOL 200 MG/20 ML VIAL ONE (13:45)
[2021-11-19] MEDS ORDERED: Dexamethasone 20 MG/5 ML VIAL ONE (13:45)
[2021-11-19] MEDS ORDERED: Promethazine HCl 25 MG/ML VIAL ONE (15:47)
== END 2021-11-19 17:17 | disposition home or self-care (01) ==
LOC: MRI 12:31
PROVIDERS: ATTEND Radiology Radiation Oncology
DX: C79.31 Secondary malignant neoplasm of brain (principal); C50.912 Malignant neoplasm of unspecified site of left female breast; M47.814 Spondylosis without myelopathy or radiculopathy, thoracic region; M48.04 Spinal stenosis, thoracic region; I10 Essential (primary) hypertension; G62.9 Polyneuropathy, unspecified; Z17.1 Estrogen receptor negative status [ER-]; Z79.899 Other long term (current) drug therapy; Z88.1 Allergy status to other antibiotic agents; Z88.5 Allergy status to narcotic agent; Z88.6 Allergy status to analgesic agent; Z88.8 Allergy status to other drugs, medicaments and biological substances
CPT/HCPCS: 70553; 72157; 82565; J1100; J2370; J2550; J2704; J3490